=== PATIENT | female | born 1980 | race Two or more races ===

== ENCOUNTER 2018-03-11 10:10 | Inpatient (IN) | payer OTHER ==
[2018-03-11] MEDS ORDERED: OXYTOCIN 30 UNITS in 0.9% NS 30 UNIT/500 ML INFUS.BAG IVPB ONE (11:03)
[2018-03-11 11:09] LABS: BASO % 0.3 % (0-2.0); EOS % 0.6 % (0-4.5); HEMATOCRIT 34.2 % (32.4-45.2); HEMOGLOBIN 11.5 GM/dL (10.7-15.3); LYMPH % 21.6 % (8-40); MCH 31.9 pg (25.7-33.7); MCHC 33.5 g/dl (32.0-36.0); MEAN CELL VOLUME 95.2 fl (80-96); MEAN PLT VOLUME 9.5 fl (7.5-11.1); MONO % 6.1 % (3.8-10.2); NEUT % 71.4 % (42.8-82.8); PLATELET COUNT 146 K/MM3 (134-434); RBC 3.59 M/mm3 (3.60-5.2); RDW 14.2 % (11.6-15.6); WHITE BLOOD COUNT 6.3 K/mm3 (4.0-10.0)
[2018-03-11] MEDS ORDERED: DEXTROSE 5%-LACTATED RINGERS 1,000 ML IV SCH (11:15)
[2018-03-11] MEDS ORDERED: OXYTOCIN 30 UNITS in 0.9% NS 30 UNIT/500 ML INFUS.BAG IVPB SCH (11:15)
[2018-03-11 11:19] LABS: INR 0.92 (0.83-1.09); PROTHROMBIN TIME (PATIENT) 10.8 SEC (9.7-13.0)
[2018-03-11 11:22] LABS: ACTIVATED PTT 22.6 SECONDS (25.2-36.5)
[2018-03-11 11:29] VITALS: BMI 26.2
[2018-03-11 11:32] LABS: ANION GAP 8 MMOL/L (8-16); BLOOD UREA NITROGEN 7 mg/dL (7-18); CALCIUM 8.7 mg/dL (8.5-10.1); CHLORIDE 107 mmol/L (98-107); CO2 22 mmol/L (21-32); CREATININE 0.3 mg/dL (0.55-1.3); GLUCOSE,RANDOM 66 mg/dL (74-106); POTASSIUM 3.8 mmol/L (3.5-5.1); SODIUM 137 mmol/L (136-145)
--- NOTE | 2018-03-11 13:16 | HP ---
Past Medical History - Admission Chief Complaint: IOL for postdates History of Present Illness: 38yo @ 41wks here for IOL for postdates. No VB/LOF. No regular ctx. +FM Refused prior IOL earlier this week, insisting only female providers - Past Medical History Hepatobiliary: No: Cirrhosis, Cholelithiasis, Cholecystitis, Choledocholithiasis , Hepatitis A, Hepatitis B, Hepatitis C, Other Renal/: No: Renal Failure, Renal Inusuff, BPH, Cancer, Hematuria, Hemodialysis , Neurogenic Bladder, Renal Calculi, UTI, Other ...: 7 ...Para: 6 ...Term: 6 ...: 0 ...Spon : 0 ...Induced : 0 ...Multiple Gestation: 0 ...LMP: 05/23/17 ... Weeks Gestation by Dates: 41.5 ...EDC by Dates: 02/27/18 ...EDC by Sono: 02/27/18 Heme/Onc: No: Anemia, B12 Deficiency, Bleeding Disorder, Cancer, Current Chemotherapy, Current Radiation Therapy, Hemochromatosis, Hypercoaguable State, Myeloproliferative Synd, Sickle Cell Disease, Sickle Cell Trait, Thrombocytopenia, Other Infectious Disease: No: AIDS, C-Diff, Herpes Zoster, HIV, MRSA, STD's, Tuberculosis, VREF, Other Psych: No: Addictions, Anxiety, Bipolar, Depression, Panic, Psychosis, Schizophrenia, Other Musculoskeletal: No: Bursitis, Chronic low back pain, Hemiparesis, Hemiplegia, Osteoarthritis, Paraplegia, Other Rheumatology: No: Fibromyalgia, Gout, Lupus, Rheumatoid Arthritis, Sarcoidosis, Vasculitis, Other ENT: No: Allergic Rhinitis, Sinusitis, Other Endocrine: No: [place]'s Disease, Ash's Disease, Diabetes Insipidus, Diabetes Mellitus, Hyperparathyroidism, Hyperthyroidism, Hypothyroidism, Osteopenia, SIADH, Other Dermatology: No: Basal Cell, Cellulitis, Eczema, Melanoma, Psoriasis, Squamous Cell, Other - Past Surgical History Past Surgical History: No: None, AAA Repair, AICD, Amputation, Appendectomy, Arthrosocopy, AV Fistula/Graft, Bariatric Surgery, Breast Biopsy, Bypass, CABG, Carotid Endarterectomy, Cataract Removal, Cholecystectomy, Colectomy, Colonoscopy, Colostomy, Craniotomy, , Cystectomy, Hernia Repair, Hysterectomy, Ileal Conduit, Ileosotomy, Joint Replacement, Kidney Transplant, Laminectomy, Liver Transplant, Mastectomy, Nephrectomy, Oopherectomy, Orchiectomy, Permanent Pacemaker, Prostatectomy, Splenectomy, Stent, Thoracotomy , TURP, Tonsillectomy, Tubal Ligation, Upper Endoscopy, Valve Replacement, Vasectomy, Vein Stripping/Ligation Hx Myomectomy: No Hx Transabdominal Cerclage: No - Advance Directives Advance Directives: Yes: Living Will - Smoking History Smoking history: Never smoked Have you smoked in the past 12 months: No - Alcohol/Substance Use Hx Alcohol Use: No - Social History Usual Living Arrangement: No: Alone, With Spouse, With Parent, With Significant Other, With Child, Assisted Living, Detention, Other History of Recent Travel: No Home Medications - Allergies Allergies/Adverse Reactions: Allergies Allergy/AdvReac Type Severity Reaction Status Date / Time No Known Allergies Allergy Verified 03/11/18 11:31 - Home Medications Home Medications: Ambulatory Orders Ferrous Sulfate 325 mg PO DAILY 03/08/18 Pnv No.95/Ferrous Fum/Folic AC [ Vitamin Tablet] 1 each PO DAILY Review of Systems - Review of Systems Constitutional: denies: No Symptoms, Chills, Diaphoresis, Fever, Lethargy, Loss of Appetite, Malaise, Night Sweats, Unintentional Wgt. Loss, Weakness, Other Eyes: denies: No Symptoms, Blind Spots, Blurred Vision, Double Vision, Eye Pain , Floaters, Photophobia, Recent Change in Vision, Other HENT: denies: No Symptoms, Difficult Swallowing, Ear Discharge, Ear Pain, Epistaxis, Gingival Bleeding, Hearing Loss, Mouth Swelling, Nasal Congestion, Ocular Prosthesis, Throat Pain, Toothache, Ringing in Ears, Other Neck: denies: No Symptoms, Decreased ROM, Lumps, Pain on Movement, Stiffness, Swollen Glands, Tenderness, Other Cardiovascular: denies: No Symptoms, Chest Pain, Edema, Palpitations, Shortness of Breath, Other Respiratory: denies: No Symptoms, Cough, Exercise Intolerance, Hemoptysis, Orthopnea, PND, Snoring, SOB, SOB on Exertion, Wheezing, Other Gastrointestinal: denies: No Symptoms, Abdominal Pain, Bloating, Constipation, Diarrhea, Dysphagia, Indigestion, Melena, Nausea, Rectal Bleeding, Vomiting, Vomiting Blood, Other Genitourinary: denies: No Symptoms, Burning, Discharge, Dysuria, Flank Pain, Frequency, Hematuria, Incontinence, Lesions, Menses, Pain, Testicular Mass, Testicular Pain, Testicular Swelling, Urgency, Vaginal Bleeding, Other Breasts: denies: No Symptoms Reported, See HPI, Breast Implants, Discharge from Nipple, Lumps, Pain, Skin Changes, Other Musculoskeletal: denies: No Symptoms, Back Pain, Crepitus, Decreased ROM, Extremity Pain, Joint Pain, Joint Swelling, Muscle Pain, Muscle Cramps, Muscle Weakness, Other Integumentary: denies: No Symptoms, Blister, Bruising, Change in Color, Eczema, Erythema, Incision, Lesions, Lump, Pallor, Pruritis, Rash, Wound, Other Neurological: denies: No Symptoms, Change in LOC, Change in Speech, Confusion, Dizziness, Headache, Incoordination, Numbness, Parasthesia, Pre-Existing Deficit , Seizure, Syncope, Tremors, Unsteady Gait, Weakness, Other Endocrine: denies: No Symptoms, Excessive Sweating, Flushing, Increased Hunger, Increased Thirst, Intolerance to Cold, Intolerance to Heat, Unexplained Weight Gain, Unexplained Weight Loss, Other Hematology/Lymphatic: denies: No Symptoms, Easily Bruised, Excessive Bleeding, Swollen Glands, Other Psychiatric: denies: No Symptoms, Altered Sleep Pattern, Anxiety, Depression, Hallucinations, Panic, Paranoia, Suicidal, Other Physical Exam - Maternity Vital Signs: Vital Signs Temperature 98.2 F 03/11/18 10:10 Pulse Rate 89 03/11/18 12:00 Respiratory Rate 18 03/11/18 12:00 Blood Pressure 104/59 L 03/11/18 12:00 O2 Sat by Pulse Oximetry (%) Constitutional: Yes: Well Nourished, No Distress, Calm - Abdominal Exam/OB Number of Fetuses: Single Presentation: Vertex Contractions: Yes Regularity: Irregular Intensity: Mild Monitor Mode: External Category: I Accelerations: Uniform Decelerations: None - Vaginal Exam/OB Vaginal Bleediing: No Dilatation (cm): 2 Effacement (%): 75 Amniotic Membrane Status: Intact Station: -3 - Physical Exam Extremities: Yes: WNL Edema: No - Labs Lab Results: CBC, BMP 03/11/18 10:46 03/11/18 10:46 Problem List - Problems (1) Post-dates Code(s): O48.0 - POST-TERM Assessment/Plan 38yo @ 41.5wks here for IOL Admit to L&D Pitocin, AROM Epidural prn Cat 1 tracing Anticipate YASMINE Day MD
[2018-03-11] MEDS ORDERED: BUTORPHANOL TARTRATE 1 MG/ML VIAL IM PRN (13:26)
--- NOTE | 2018-03-11 13:28 | PN ---
Progress Note, Labor Vaginal Exam #1 Labor Exam Date: 03/11/18 Labor Exam Time: 13:28 Heart Rate (range): 130 Dilatation: 2 Effacement (%): 75 Amniotic Membrane Status: Intact Presentation: Vertex/Position Station: -3 (AROM, clears Cat 1 Anticipate Darline Day)
[2018-03-11] MEDS ORDERED: BUTORPHANOL TARTRATE 1 MG/ML VIAL ONE ×2 (13:29)
[2018-03-11] MEDS ORDERED: PROMETHAZINE HCL 25 MG/1 ML VIAL ONE (13:29)
[2018-03-11] MEDS ORDERED: PROMETHAZINE HCL 25 MG/1 ML VIAL IVPB ONE (14:30)
[2018-03-11] MEDS ORDERED: BUTORPHANOL TARTRATE 1 MG/ML VIAL IVPB ONE (14:30)
[2018-03-11] MEDS ORDERED: OXYTOCIN 20 UNITS in 0.9% NS 20 UNIT/1,000 ML INFUS.BAG IV ONE (15:27)
[2018-03-11] MEDS ORDERED: BENZOCAINE 28 GM HEMORRHOIDAL OINTMENT TP PRN (15:47)
[2018-03-11] MEDS ORDERED: BENZOCAINE 20% 57 GM BOTTLE TP PRN (15:47)
[2018-03-11] MEDS ORDERED: WITCH HAZEL 50% (TUCKS) 40 PAD/JAR PAD TP PRN (15:47)
--- NOTE | 2018-03-11 15:47 | PN ---
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 Stadol anesthesia given 2 hours prior. Spontaneous delivery of anterior shoulder with remaining parts. Placed on maternal abdomen. Apgars 9/10. Weight pending to allow sufficient skin to skin. Spontaneous delivery of intact placenta with 3VC. Fundus firm. Perineum inspected, no lacerations. EBL 250. Mother and baby doing well. Darline Day MD
[2018-03-11] MEDS ORDERED: OXYTOCIN 20 UNITS in 0.9% NS 20 UNIT/1,000 ML INFUS.BAG IV SCH (16:00)
[2018-03-12] MEDS: ACETAMINOPHEN 325 MG TABLET (FP) PO PRN ×2 (04:26→14:26)
[2018-03-12] MEDS: IBUPROFEN 600 MG TABLET (FP) PO PRN ×2 (04:29→14:27)
--- NOTE | 2018-03-12 07:41 | PN ---
Post Progress Note Type of Delivery: Vital Signs: Vital Signs Temperature 98 F 03/12/18 06:00 Pulse Rate 63 03/12/18 06:00 Respiratory Rate 18 03/12/18 06:00 Blood Pressure 108/65 03/12/18 06:00 O2 Sat by Pulse Oximetry (%) Uterus: Yes: Fundus Firm Abdomen/GI: Yes: Abdomen soft Lochia: Yes: Rubra Lochia, amount: Small Perineum: Yes: Intact Activity: Ambulating - Labs Labs: CBC WBC 6.3 K/mm3 (4.0-10.0) 03/11/18 10:46 RBC 3.59 M/mm3 (3.60-5.2) L 03/11/18 10:46 Hgb 11.5 GM/dL (10.7-15.3) 03/11/18 10:46 Hct 34.2 % (32.4-45.2) 03/11/18 10:46 MCV 95.2 fl (80-96) 03/11/18 10:46 MCH 31.9 pg (25.7-33.7) 03/11/18 10:46 MCHC 33.5 g/dl (32.0-36.0) 03/11/18 10:46 RDW 14.2 % (11.6-15.6) 03/11/18 10:46 Plt Count 146 K/MM3 (134-434) 03/11/18 10:46 MPV 9.5 fl (7.5-11.1) 03/11/18 10:46 Absolute Neuts (auto) 4.5 K/mm3 (1.5-8.0) 03/11/18 10:46 Neutrophils % 71.4 % (42.8-82.8) 03/11/18 10:46 Lymphocytes % 21.6 % (8-40) 03/11/18 10:46 Monocytes % 6.1 % (3.8-10.2) 03/11/18 10:46 Eosinophils % 0.6 % (0-4.5) 03/11/18 10:46 Basophils % 0.3 % (0-2.0) 03/11/18 10:46 Nucleated RBC % 0 % (0-0) 03/11/18 10:46 Problem List - Problems (1) Post-dates Code(s): O48.0 - POST-TERM Assessment/Plan 38yo s/p , PPD#1 -Rh+/RI/boy for circ tomorrow -Routine PP care, OOB, ambulate -Labs pending -Anticipated/c to home PPD#2 Carl Day MD
[2018-03-12 08:37] LABS: BASO % 0.3 % (0-2.0); EOS % 0.6 % (0-4.5); HEMATOCRIT 34.6 % (32.4-45.2); HEMOGLOBIN 11.5 GM/dL (10.7-15.3); LYMPH % 20.4 % (8-40); MCH 32.2 pg (25.7-33.7); MCHC 33.3 g/dl (32.0-36.0); MEAN CELL VOLUME 96.6 fl (80-96); MEAN PLT VOLUME 10.3 fl (7.5-11.1); MONO % 6.2 % (3.8-10.2); NEUT % 72.5 % (42.8-82.8); PLATELET COUNT 126 K/MM3 (134-434); RBC 3.58 M/mm3 (3.60-5.2); RDW 14.2 % (11.6-15.6); WHITE BLOOD COUNT 9.3 K/mm3 (4.0-10.0)
[2018-03-12] MEDS: PRENATAL VITAMINS W/ FOLIC ACID TABLET (FP) PO SCH (10:11)
[2018-03-12] MEDS ORDERED: SENNOSIDES/DOCUSATE COMBO (SENNA PLUS) TABLET (UD) PO PRN (22:00)
[2018-03-13] MEDS: ACETAMINOPHEN 325 MG TABLET (FP) PO PRN (01:27)
[2018-03-13] MEDS: IBUPROFEN 600 MG TABLET (FP) PO PRN (01:29)
--- NOTE | 2018-03-13 03:16 | DS ---
Physical Exam-AUTO BODY WORKER Vital Signs: Vital Signs Temperature 98 F 03/12/18 22:00 Pulse Rate 89 03/12/18 22:00 Respiratory Rate 18 03/12/18 22:00 Blood Pressure 113/69 03/12/18 22:00 O2 Sat by Pulse Oximetry (%) Constitutional: Yes: Well Nourished, No Distress, Calm Eyes: Yes: WNL, Conjunctiva Clear, EOM Intact HENT: Yes: WNL, Atraumatic, Normocephalic Neck: Yes: WNL, Supple, Trachea Midline Cardiovascular: Yes: WNL, Regular Rate and Rhythm Respiratory: Yes: WNL, Regular, CTA Bilaterally Gastrointestinal: Yes: WNL ...Rectal Exam: Yes: WNL Renal/: Yes: WNL ....Post : Yes: Uterus firm, Uterus non-tender, Slight lochia rubra Breast(s): Yes: WNL Musculoskeletal: Yes: WNL Extremities: Yes: WNL Edema: LLE: Trace, RLE: Trace Integumentary: Yes: WNL Neurological: Yes: WNL, Alert, Oriented ...Motor Strength: WNL Psychiatric: Yes: WNL, Alert, Oriented Labs: CBC, BMP 03/12/18 07:12 03/11/18 10:46 Delivery - Delivery Vaginal Delivery: Spontaneous Type of Anesthesia: None Episiotomy/Laceration: None EBL (cc): 250 Delivery, Single - Stages of Labor Date 1st Stage Initiatied: 03/11/18 Time 1st Stage Initiated: 12:00 Date 2nd Stage Initiated: 03/11/18 Time 2nd Stage Initiated: 15:15 Date of Delivery: 03/11/18 Time of Delivery: 15:34 Time Placenta Delivered: 15:40 Placenta: Yes: Spontaneous - 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: No Gender: Male Weight: 8 lb 5 oz Position: Left, OA Total Hours ROM (Hrs/Mins): 2HRS 20MIN - 1 Minute Total Score: 9 5 Minutes Total Score: 10 - [place] Feeding Plan Initial Plan: Elected not to breastfeed exclusively throughout hospitalization Discharge Summary Reason For Visit: INDUCTION OF LABOR Current Active Problems Post-dates (Acute) Procedures: Principal: Condition: Good - Instructions Diet, Activity, Other Instructions: regular diet, no intercourse , if heavy vaginal bleeding , fever call MD follow up [facility] care 4 weeks Referrals: Darline Day MD [Staff Physician] - Disposition: HOME - Home Medications Comprehensive Discharge Medication List: Ambulatory Orders Ferrous Sulfate 325 mg PO DAILY 03/08/18 Pnv No.95/Ferrous Fum/Folic AC [ Vitamin Tablet] 1 each PO DAILY Ibuprofen [Motrin -] 600 mg PO TID #21 tablet 03/12/18
[2018-03-13] MEDS: PRENATAL VITAMINS W/ FOLIC ACID TABLET (FP) PO SCH (09:56)
[2018-03-13 12:00] VITALS: BP 104/65; PULSE 76; TEMP 97.8
== END 2018-03-13 16:40 | disposition home or self-care (01) | DRG 560 ==
LOC: JLDR 10:10 → J3W 17:15
PROVIDERS: ADMIT Obstetrics & Gynecology; ATTEND Obstetrics & Gynecology
PROC: 10E0XZZ Delivery of Products of Conception, External Approach (ICD-10-PCS; principal; 2018-03-11)
PROC: 3E0P7VZ Introduction of Hormone into Female Reproductive, Via Natural or Artificial Opening (ICD-10-PCS; 2018-03-11)
DX: O48.0 Post-term pregnancy (principal); Z3A.41 41 weeks gestation of pregnancy; Z37.0 Single live birth
CPT/HCPCS: 36415; 59409; 80048; 85025; 85610; 85730; 86593; 86850; 86900; 86901